=== PATIENT | male | born 1980 | race Caucasian/White ===

== ENCOUNTER 2017-01-25 05:38 | Inpatient (IN) | payer OTHER ==
--- NOTE | 2017-01-12 09:48 | HP ---
Date/Time of Note Date/Time of Note DATE: 01/12/17 TIME: 09:39 Assessment/Plan VTE Prophylaxis VTE Prophylaxis Intervention: other Assessment/Plan Chief Complaint/Hosp Course Chest x-ray demonstrates normal bones and soft tissue normal cardiac size and silhouette normal lungs without evidence of TB [place]: Sodium 142 potassium 3.9 chloride 103 bicarb 29 BUN 13 creatinine 0.9 random blood sugar 114 modest elevation of transaminases; white count 6.2 hemoglobin 15.6 hematocrit 47.5 platelet count 271; pro time 12.8 with an INR of 1.17 PTT is 26 seconds; urinalysis 1.025 pH is 6 small bilirubin trace ketone trace protein; EKG demonstrates sinus rhythm at 58 with intervals of 0.1 6.10.38 normal morphology with exam of the lead placement air Problems: (1) Lumbar disc disease with radiculopathy Status: Chronic Comment: Failed all conservative attempts of treatment is being brought in electively for surgical repair. He is an appropriate candidate for the procedure (2) Asthma, moderate persistent Status: Chronic Comment: Precaution and placing on [place] in the run up to surgery for this. On-call to the OR he should be treated with Xopenex 1.25 mg by hand-held nebulizer as precaution. Otherwise this is stable Qualifiers: Asthma complication type: uncomplicated Qualified Code: J45.40 - Moderate persistent asthma without complication (3) Pre-op evaluation Status: Acute Comment: Given the above pulmonary precautions at this time find him to be acceptable surgical candidate concur with plans proceed with surgery. He should do well using standard and routine anesthesia precautions and is at low cardiac risk based on the modified Bolaños's criteria HPI/ROS Admit Date/Time Admit Date/Time January 25, 2017 Hx of Present Illness Preop evaluation- And history and physical ROS 36-year-old [place] gentleman with a history of low back pain. He is being brought in electively for surgical repair and microdiscectomy. Constitutional: no complaints (No fevers chills or sweats) Eyes: no complaints ENT: no complaints Respiratory: cough, other (4 AM awakening-nocturnal awakening), wheezing Cardiovascular: no complaints Gastrointestinal: no complaints Genitourinary: no complaints Musculoskeletal: no complaints Skin: no complaints Neurologic: no complaints Lymphatic: no complaints Immunologic: no complaints PMH/Family/Social Past Medical History Usual childhood diseases, history of varicella Medical History: no pertinent history Past Surgical History Past Surgical Hx: no surgical history Family History Significant Family History: asthma, diabetes, other (Positive CVA) Social History Born in [facility] to age 6 and raised in the [place]; 11th grade education without experience; previously worked construction and for [employer]; lives with spouse and 6 children. Alcohol Use: none Smoking Status: Never smoker Drug Use: none Exam/Review of Systems Vital Signs Vitals Weight equals 219.9 pounds blood pressure 118/76; pulse 60; temperature 98; respiratory rate 18; height 5 feet 8 inches Exam Exam Extremely reserved man in no aung distress who is having some pain from his back that he is trying to hide Constitutional: alert, oriented Head: atraumatic, normocephalic Eyes: EOMI, PERRL, nl conjunctiva, nl lids, nl sclera ENMT: mucosa pink and moist, nl external ears & nose, nl lips & teeth, nl nasal mucosa & septum Neck: non-tender, supple Respiratory: normal air movement, wheezing (Scant wheezing on forced expiratory maneuver) Cardiovascular: nl pulses, regular rate and rhythm Gastrointestinal: nl liver, spleen, non-tender, soft Musculoskeletal: nl extremities to inspection, nl gait and stance Extremities: normal pulses Neurological: VOCATIONAL COUNSELOR II-XII intact, nl mental status, nl speech, nl strength, other (Weakness of right leg) Copies To: CC: ADRIENNE DAHL MD, JOSHUA A MD Jan 12, 2017 09:48
[~2017-01-25] VITALS: Ht 172.7 cm; Wt 98.6 kg
[2017-01-25] VITALS (30 sets, daily range): BP systolic 92–132; BP diastolic 43–78; PULSE 53–80; RESP 13–58; Ht 172.7 cm; Wt 98.6 kg
[2017-01-25] MEDS ORDERED: CEFAZOLIN 2 GM/50 ML (PMX) 50 ML IVPB SCH (05:56)
[2017-01-25] MEDS ORDERED: LACTATED RINGER'S 1,000 ML IV ONE (06:00)
[2017-01-25] MEDS ORDERED: INHALER (06:17)
[2017-01-25] MEDS ORDERED: FLUT1AER INHALATION (06:24)
[2017-01-25] MEDS ORDERED: SURGIFOAM POWDER 1 GM KIT ONE (06:52)
[2017-01-25] MEDS ORDERED: THROMBIN 5000 UNIT VIAL ONE (06:52)
[2017-01-25] MEDS ORDERED: BUPIVACAINE 0.5%/EPI (SDV) 30 ML INJ ONE (06:52)
[2017-01-25] MEDS ORDERED: POLYMYXIN/BACITRACIN 1L IRRIG ONE (06:53)
[2017-01-25] MEDS ORDERED: CA CHLORIDE 10% 10 ML SYRINGE ONE (06:53)
[2017-01-25] MEDS ORDERED: PROPOFOL 100 ML ONE (06:58)
[2017-01-25] MEDS ORDERED: ROCURONIUM 50 MG INJ ONE (06:58)
[2017-01-25] MEDS ORDERED: MIDAZOLAM 1 MG/ML 2 ML INJ ONE (06:58)
[2017-01-25] MEDS ORDERED: FENTAnyl 50 MCG/ML VIAL ONE ×3 (06:58→08:07)
[2017-01-25] MEDS ORDERED: CEFAZOLIN 1 GM INJ ONE (06:58)
--- NOTE | 2017-01-25 07:05 | HPN ---
Date/Time of Note Date/Time of Note DATE: 01/25/17 TIME: 07:05 Interval H&P Admission Note Pt. seen H&P reviewed: No system changes ADRIENNE DAHL MD Jan 25, 2017 07:05
[2017-01-25] MEDS ORDERED: ACETAMINOPHEN 1000MG/100ML IV 100 ML ONE (08:06)
[2017-01-25] MEDS ORDERED: DEXAMETHASONE 4 MG/ML 1 ML INJ ONE (08:06)
[2017-01-25] MEDS ORDERED: SUGAMMADEX SODIUM 200 MG/2 ML VIAL IV ONE (08:06)
[2017-01-25] MEDS ORDERED: ONDANSETRON 4 MG INJ ONE (08:06)
[2017-01-25] MEDS ORDERED: METOCLOPRAMIDE 10 MG INJ ONE (08:06)
[2017-01-25] MEDS ORDERED: SUCCINYLCHOLINE CHLORIDE 100 MG/5 ML SYG IV ONE (08:11)
[2017-01-25] MEDS ORDERED: MEPERIDINE 25 MG INJ IV PRN (08:30)
[2017-01-25] MEDS ORDERED: OXYCODONE/ACETAMINOPHEN (5/325) TAB PO PRN ×2 (08:30)
[2017-01-25] MEDS ORDERED: METOCLOPRAMIDE 10 MG INJ IV PRN (08:30)
[2017-01-25] MEDS ORDERED: LABETALOL HCL 20MG INJ IV PRN (08:30)
[2017-01-25] MEDS ORDERED: DIPHENHYDRAMINE 50 MG INJ IV PRN ×2 (08:30→09:00)
[2017-01-25] MEDS ORDERED: HYDROmorphONE (0.2 MG/ML) 10ML SYG IV PRN ×3 (08:30)
[2017-01-25] MEDS ORDERED: FENTAnyl 50 MCG/ML VIAL IV PRN ×3 (08:30)
[2017-01-25] MEDS ORDERED: morphine (1 MG/ML) 10ML SYRINGE IV PRN ×3 (08:30)
[2017-01-25] MEDS ORDERED: EPHEDrine SULFATE 50 MG/5 ML SYG IV PRN (08:30)
[2017-01-25] MEDS ORDERED: ONDANSETRON 4 MG INJ IV PRN ×2 (08:30→09:00)
--- NOTE | 2017-01-25 08:38 | SIPON ---
Date/Time of Note Date/Time of Note DATE: 01/25/17 TIME: 08:37 Operative Report Preoperative Diagnosis right L4-5 HNP Postoperative Diagnosis right L4-5 HNP Operation/Procedure Performed right L4-5 discectomy Surgeon see signature line assistant printer floor covering Evy Anesthesia: general Estimated blood loss: 10 - 50 ml's Transfusion Required none Specimen disk Grafts/Implants none Complications none ADRIENNE DAHL MD Jan 25, 2017 08:38
[2017-01-25] MEDS ORDERED: NALOXONE (0.4 MG/ML) INJ IV PRN (09:00)
[2017-01-25] MEDS ORDERED: HYDROmorphONE 0.5 MG/0.5 ML SYG IV PRN (09:00)
[2017-01-25] MEDS ORDERED: CEPASTAT LOZENGE MT PRN (09:00)
[2017-01-25] MEDS ORDERED: AL HYDROX/MG HYDROX/SIMETH 30 ML CUP PO PRN (09:00)
[2017-01-25] MEDS ORDERED: CARISOPRODOL 350 MG TAB PO PRN (09:00)
[2017-01-25] MEDS ORDERED: ZOLPIDEM 5 MG TAB PO PRN (09:00)
[2017-01-25] MEDS ORDERED: ACETAMINOPHEN 325 MG TAB PO PRN (09:00)
[2017-01-25] MEDS ORDERED: BISACODYL 10 MG SUPP PR PRN (09:00)
[2017-01-25] MEDS ORDERED: HYDROmorphONE 0.2 MG/ML PCA ONE (09:10)
[2017-01-25] MEDS: HYDROmorphONE 0.2 MG/ML PCA IV SCH ×2 (09:39→20:29)
--- NOTE | 2017-01-25 09:42 | RADRPT ---
PROCEDURE: Intraoperative XR. CLINICAL INDICATION: Intraoperative radiograph during lumbar spine surgery. TECHNIQUE: Spot intraoperative lateral lumbar x-ray image was provided. The images were reviewed on a high-resolution PACS workstation. COMPARISON: None available FINDINGS: Spot intraoperative lateral lumbar view were provided during lumbar spine surgery. The images demon strate without instrumentation at the level of L4-5. IMPRESSION: 1. Spot intraoperative lateral lumbar view during L4-5 microdiskectomy were provided. 2. Please see operative report of the same day for further information. RPTAT: HGAS .Nazario Alves MD, Date Time Electronically viewed and signed by .Nazario Alves MD, on 01/25/2017 09:42 .S/
--- NOTE | 2017-01-25 09:42 | RADRPT ---
PROCEDURE: Intraoperative XR. CLINICAL INDICATION: Intraoperative radiograph during L4-5 microdiskectomy. TECHNIQUE: Spot intraoperative lateral lumbar x-ray image was provided. The images were reviewed on a high-resolution PACS workstation. COMPARISON: None available FINDINGS: Spot intraoperative lateral lumbar view were provided during lumbar spine surgery. The images demon strate metallic probes at the L4-5 and L5-S1 levels. IMPRESSION: 1. Spot intraoperative lateral lumbar view during lumbar spine surgery were provided. 2. Please see operative report of the same day for further information. RPTAT: HGAS .Nazario Alves MD, Date Time Electronically viewed and signed by .Nazario Alves MD, on 01/25/2017 09:41 .S/
--- NOTE | 2017-01-25 09:52 | OPR ---
DATE OF OPERATION: 01/25/2017 PREOPERATIVE DIAGNOSIS: Right L4-L5 disk herniation with radiculopathy. POSTOPERATIVE DIAGNOSIS: Right L4-L5 disk herniation with radiculopathy. PROCEDURES: 1. Right L4-5 hemilaminotomy, partial medial facetectomy, and foraminotomy. 2. Right L4-L5 lumbar microdiskectomy. 3. Use of operative microscope. 4. Lateral localizing film x2. 5. Intraoperative neuromonitoring (1 hour). PRIMARY SURGEON: Ang Pennington MD WEB APPLICATION DEV SPECIALIST: JOAO Pringle NEED FOR PATIENT CARE NURSING ASSISTANT: During this spinal surgical procedure, my assistant teacher was used to retract and protect the spinal nerves and dural sac. My assistant teacher also employed the suction catheters to evacuate blood from the surgical field to improve visualization of the neural structures. The assistant teacher was medically necessary to facilitate the completion of the surgery in a safe and expeditious manner. [facility] regulations, as well as hospital bylaws, preclude the use of non-licensed health care personnel, such as operating room technicians, to perform these functions. FINDINGS: Neuromonitoring at the start of the case revealed left L4 amplitude down 40%, left L5 amplitude down 40, right L5 amplitude down 30%. At the end of the case, nerve signals returned to normal. There is a right side disk herniation at L4-L5. ESTIMATED BLOOD LOSS: Less than 30 mL. DRAINS: None. SPECIMENS: L4-5 disk. COMPLICATIONS OF PROCEDURES: None. ANESTHESIOLOGIST: Dr. Lopez TYPE OF ANESTHESIA: General. INDICATIONS FOR PROCEDURE: This is a 36-year-old gentleman with right lumbosacral radiculopathy in the setting of a disk herniation. He failed nonoperative measures; therefore, I recommend proceeding with above-mentioned surgery. Preoperatively discussed risks, benefits, and alternatives. He understood and wished to proceed. DESCRIPTION OF PROCEDURE IN DETAIL: The patient was identified in the preoperative holding area, given Ancef antibiotic, taken to the operating where he was successfully placed under general anesthesia. Neuromonitoring leads were placed, sequential compressive devices were applied. Neuromonitoring was utilized during the procedure for 1 hour to include SSEP, MEP, and EMG. This was performed by [facility]. The start time was 7:30, closure time was 8: 30 a.m. The patient was placed on the operating room table in prone position over a Vishnu frame. All bony prominences were well padded. The back was then prepped and draped in usual sterile fashion. Spinal needles were placed and lateral localizing films obtained to confirm the correct levels. Once this was confirmed, I injected the skin with Marcaine and epinephrine. Incision was then made over the L4-5 level. Incision was taken down to dorsal fascia, which was incised with Bovie cautery. I then subperiosteally dissected the right L4 lamina. Wendy retractor was placed. [place] was placed under what was felt to be the L4 lamina and repeat lateral films obtained to confirm the correct levels. Once this was confirmed, microscope was brought in and a right-sided hemilaminotomy, partial medial facetectomy, and foraminotomy was performed. Ligamentum flavum was then sharply dissected. I identified the nerve root which my assistant teacher retracted medially. I identified the annulus, made an annulotomy followed by limited microdiskectomy. Once this was done, all nerve signals returned to normal. I irrigated the wound. Hemostasis was achieved with bipolar cautery and Surgifoam. Valsalva maneuver was performed and there was no leak of CSF. The wound was dry and therefore, I elected not to place a drain. I passed an epidural catheter through which I injected 100 mcg of fentanyl. I then injected PPP with thrombin over the dura for hemostatic purposes. The retractors were removed and I closed the deep fascia with #1 Vicryl stitch. I closed subcutaneous tissue with 2-0 Vicryl stitch. A 4-0 Monocryl closure was then performed. Microscope was taken off the field. Dermabond was then applied. The patient was then awakened from anesthesia and taken to recovery room in stable condition. Lap, sponge, and instrument counts were correct x2. There were no apparent complications during the procedure. The patient will be admitted to the orthopedic [facility] for routine postoperative care to include pain control, neurovascular checks, antibiotics, and physical therapy. Dictated By: ANG PALOMO/SWATHI Conf#: [id number] DID#: [id number] ANNIE
[2017-01-25] MEDS: DOCUSATE SODIUM 100 MG CAP PO SCH ×2 (13:17→20:27)
[2017-01-25] MEDS: D5W-0.45 NACL + KCL 20 MEQ 1,000 ML IV SCH ×3 (13:17→21:48)
[2017-01-25] MEDS: CEFAZOLIN 1 GM/50 ML (PMX) 50 ML IVPB SCH ×2 (15:23→22:34)
--- NOTE | 2017-01-25 18:08 | CONS ---
Date/Time of Note Date/Time of Note DATE: 01/25/17 TIME: 18:05 Assessment/Plan Assessment/Plan Chief Complaint/Hosp Course Chest x-ray demonstrates normal bones and soft tissue normal cardiac size and silhouette normal lungs without evidence of TB [place]: Sodium 142 potassium 3.9 chloride 103 bicarb 29 BUN 13 creatinine 0.9 random blood sugar 114 modest elevation of transaminases; white count 6.2 hemoglobin 15.6 hematocrit 47.5 platelet count 271; pro time 12.8 with an INR of 1.17 PTT is 26 seconds; urinalysis 1.025 pH is 6 small bilirubin trace ketone trace protein; EKG demonstrates sinus rhythm at 58 with intervals of 0.1 6.10.38 normal morphology with exam of the lead placement air Problems: (1) Status post lumbar laminectomy Status: Acute Comment: At this point he is stable postoperatively. We will see how recuperates. Overall expect good rehabilitation potential. (2) Asthma, moderate persistent Status: Chronic Comment: Positive response to controller medication treatment. Continue same. Qualifiers: Asthma complication type: uncomplicated Qualified Code: J45.40 - Moderate persistent asthma without complication Consultation Date/Type/Reason Admit Date/Time Jan 25, 2017 at 05:38 Initial Consult Date January 25, 2017 Type of Consultation: Internal medicine Reason for Consultation Asthma persistent moderate; postoperative assistance Referring Provider: ADRIENNE DAHL MD 24 HR Interval Summary Free Text/Dictation Reserved [place] gentleman with at bedside. He reports that he is still having bilateral leg symptoms. He reports his right leg is better than preop his left leg is similar to preop. Constitutional: no complaints Detailed Summary Respiratory: no complaints Cardiovascular: no complaints Gastrointestinal: no complaints Genitourinary: no complaints Musculoskeletal: back pain Skin: no complaints Exam/Review of Systems Vital Signs Vitals Vital Signs Date Time Temp Pulse Resp B/P Pulse Ox O2 Delivery O2 Flow Rate FiO2 01/25/17 15:45 98.2 57 16 111/65 96 Room Air Exam Constitutional: alert, oriented Neck: non-tender, supple Respiratory: clear to auscultation, normal air movement Cardiovascular: nl pulses, regular rate and rhythm Medications Medications Current Medications Potassium Chloride/Dextrose/ Sod Cl (D5-1/2ns + KCl 20 Meq) 1,000 ml @ 100 mls/ hr Q10H IV Last administered on 01/25/17 13:17; Admin Dose 100 MLS/HR; Start 01/25/17 at 09:00 Acetaminophen/ Hydrocodone Bitart ([place] (10/325)) 1 tab Q4H PRN PO PAIN LEVEL 1-5; Start 01/26/17 at 10:00 Acetaminophen/ Hydrocodone Bitart ([place] (10/325)) 2 tab Q4H PRN PO PAIN LEVEL 6-10; Start 01/26/17 at 10:00 Hydromorphone HCl 0.2 mg 0.2 mg Q1H PRN IV BREAKTHROUGH PAIN; Start 01/25/17 at 09:00 Cefazolin Sodium (Ancef 1 Gm/50 ml (Pmx)) 50 ml @ 100 mls/hr Q8H IVPB Last administered on 01/25/17 15:23; Admin Dose 100 MLS/HR; Start 01/25/17 at 15: 00; Stop 01/26/17 at 07:29 Ondansetron HCl (Zofran Inj) 4 mg Q6H PRN IV NAUSEA AND/OR VOMITING; Start at 09:00 Bisacodyl (Dulcolax Supp) 10 mg DAILY PRN PA CONSTIPATION; Start 01/25/17 at 09:00 Docusate Sodium (Colace) 100 mg BID PO Last administered on 01/25/17 13:17; Admin Dose 100 MG; Start 01/25/17 at 09:00 Al Hydrox/Mg Hydrox/Simethicone (Mag-Al Plus) 15 ml Q6H PRN PO CONSTIPATION/ DYSPEPSIA; Start 01/25/17 at 09:00 Acetaminophen (Tylenol Tab) 650 mg Q4H PRN PO MEDINA OR TEMP GREATER THAN 101.3F; Start 01/25/17 at 09:00 Carisoprodol (Soma) 350 mg TID PRN PO MUSCLE SPASMS; Start 01/25/17 at 09:00 Phenol (Cepastat Lozenge) 1 lozenge PRN PRN MT SORE THROAT; Start 01/25/17 at 09:00 Diphenhydramine HCl (Benadryl) 25 mg Q6H PRN IV ITCHING; Start 01/25/17 at 09: 00 Naloxone HCl (Narcan) 0.2 mg Q2M PRN IV RR 8 BREATHS/MIN OR LESS; Start at 09:00 Hydromorphone HCl (Dilaudid EMPLOYEE WELFARE MANAGER) EMPLOYEE WELFARE MANAGER to be started in PACU Q4PCA IV Last administered on 01/25/17t 09:39; Admin Dose 6 MG; Start 01/25/17 at 09:00; Status Future Hold Miscellaneous Information 1. Hold EMPLOYEE WELFARE MANAGER at 1,000... EMPLOYEE WELFARE MANAGER IV ; Start 01/25/17 at 09 :00 Acetaminophen/ Hydrocodone Bitart ([place] ()) 2 tab ONCE@0930 PO ; Start 01/26/17 at 09:30; Stop 01/26/17 at 09:31 SARAH RON MD Jan 25, 2017 18:08
[2017-01-25] MEDS ORDERED: ALBUTEROL 18 GM INHALER INH PRN (18:30)
[2017-01-25] MEDS: SALMETEROL/FLUTICASONE 250/50 INHA INH SCH (21:48)
[2017-01-26 02:44] VITALS: BP 110/62; RESP 19
[2017-01-26] MEDS: HYDROmorphONE 0.2 MG/ML PCA IV SCH (03:19)
[2017-01-26] MEDS: D5W-0.45 NACL + KCL 20 MEQ 1,000 ML IV SCH ×2 (05:00→08:55)
[2017-01-26 05:18] LABS: BASOPHILS % 0.1 % (0.0-2.0); HEMATOCRIT 38.5 % (42.0-52.0); HEMOGLOBIN 13.1 g/dl (14.0-18.0); LYMPHOCYTES # 1.6 10^3/ul (0.8-2.9); LYMPHOCYTES % 11.3 % (15.0-51.0); MEAN CORPUSCULAR HEMOGLOBIN 30.7 pg (29.0-33.0); MEAN CORPUSCULAR VOLUME 90.2 fl (82.0-101.0); MEAN PLATELET VOLUME 9.8 fl (7.4-10.4); MONOCYTE # 0.7 10^3/ul (0.3-0.9); NEUTROPHIL # 11.7 10^3/ul (1.6-7.5); NEUTROPHILS % 83.1 % (39.0-77.0); PLATELET COUNT 259 10^3/UL (140-415); RED BLOOD COUNT 4.27 10^6/ul (4.70-6.10); RED CELL DISTRIBUTION WIDTH 13.2 % (11.5-14.5); WHITE BLOOD COUNT 14.1 10^3/ul (4.8-10.8)
[2017-01-26 05:50] LABS: CALCIUM 8.5 mg/dl (8.4-10.2); CREATININE 0.93 mg/dl (0.61-1.24); MAGNESIUM 1.9 mg/dl (1.7-2.5); POTASSIUM 4.1 mmol/L (3.5-5.1)
[2017-01-26] MEDS: CEFAZOLIN 1 GM/50 ML (PMX) 50 ML IVPB SCH (05:54)
[2017-01-26 07:52] VITALS: BP 126/70; RESP 19
[2017-01-26] MEDS: DOCUSATE SODIUM 100 MG CAP PO SCH (08:54)
[2017-01-26] MEDS: SALMETEROL/FLUTICASONE 250/50 INHA INH SCH (08:55)
[2017-01-26] MEDS ORDERED: HYDROCODONE/APAP (10/325) TAB PO SCH (09:30)
[2017-01-26] MEDS ORDERED: HYDROCODONE/APAP (10/325) TAB PO PRN ×2 (10:00)
--- NOTE | 2017-01-26 12:52 | DS ---
Date/Time of Note Date/Time of Note DATE: 01/26/17 TIME: 12:50 Discharge Summary Admission/Discharge Info Admit Date/Time Jan 25, 2017 at 05:38 Discharge Date/Time 01/26 Discharge Diagnosis disk herniation Patient Condition: Good Procedures lumbar discectomy Hx of Present Illness back and leg pain Hospital Course the patient was admitted to the orth[facility] after undergoing the above procedure. The post-op course was uncomplicated. By post-op day #1 the patient was doing well and deemed stable for discharge with f/u arranged with the undersigned. Home Meds Reported Medications Fluticasone-Vilanterol (Breo Ellipta Inhaler) 100-25 Mcg/Actuation Aer.pow.ba, 1 PUFF INHALATION DAILY, #1 INHALER 01/25/17 [Inhaler] No Conflict Check, for SOB/ASTHMA 01/25/17 Primary Care Provider Not On Staff Doctor Pending Labs Laboratory Tests Test 01/26/17 04:47 01/26/17 04:48 White Blood Count 14.110^3/ul (4.8-10.8) Red Blood Count 4.2710^6/ul (4.70-6.10) Hemoglobin 13.1g/dl (14.0-18.0) Hematocrit 38.5% (42.0-52.0) Mean Corpuscular Volume 90.2fl (82.0-101.0) Mean Corpuscular Hemoglobin 30.7pg (29.0-33.0) Mean Corpuscular Hemoglobin Concent 34.0g/dl (32.0-37.0) Red Cell Distribution Width 13.2% (11.5-14.5) Platelet Count 69603^3/UL (140-415) Mean Platelet Volume 9.8fl (7.4-10.4) Neutrophils % 83.1% (39.0-77.0) Lymphocytes % 11.3% (15.0-51.0) Monocytes % 5.0% (0.0-11.0) Eosinophils % 0.0% (0.0-7.0) Basophils % 0.1% (0.0-2.0) Nucleated Red Blood Cells % 0.0/100WBC (0.0-0.0) Neutrophils # 11.710^3/ul (1.6-7.5) Lymphocytes # 1.610^3/ul (0.8-2.9) Monocytes # 0.710^3/ul (0.3-0.9) Eosinophils # 0.010^3/ul (0.0-0.5) Basophils # 0.010^3/ul (0.0-0.1) Nucleated Red Blood Cells # 0.010^3/ul (0.0-0.0) Sodium Level 141mmol/L (135-144) Potassium Level 4.1mmol/L (3.5-5.1) Chloride Level 105mmol/L (97-110) Carbon Dioxide Level 25mmol/L (21-31) Anion Gap 15 (8-16) Blood Urea Nitrogen 13mg/dl (7-20) Creatinine 0.93mg/dl (0.61-1.24) Glucose Level 143mg/dl (70-220) Calcium Level 8.5mg/dl (8.4-10.2) Magnesium Level 1.9mg/dl (1.7-2.5) Hepatitis B Surface Antigen NEGATIVE (NEGATIVE) Hepatitis C Antibody NEGATIVE (NEGATIVE) ADRIENNE DAHL MD Jan 26, 2017 12:51
[2017-01-26 14:00] VITALS: BP 121/69; RESP 19
== END 2017-01-26 15:09 | disposition home or self-care (01) | DRG 520 ==
LOC: REC 05:38 → MS1 10:31
PROVIDERS: ADMIT Specialist; ATTEND Specialist
PROC: 01NB0ZZ Release Lumbar Nerve, Open Approach (ICD-10-PCS; 2017-01-25)
PROC: 0SB40ZZ Excision of Lumbosacral Disc, Open Approach (ICD-10-PCS; principal; 2017-01-25 07:00)
DX: M51.17 Intervertebral disc disorders with radiculopathy, lumbosacral region (principal); J45.40 Moderate persistent asthma, uncomplicated
CPT/HCPCS: 72020; 80048; 83735; 85025; 86803; 86999; 87340; 97116; 97162; 97530; J0131; J0690; J1100; J1170; J2250; J2405; J2765; J3010; J3480